=== PATIENT | female | born 1940 | race Two or more races ===

== ENCOUNTER 2017-01-07 16:04 | Outpatient (CLI) | payer OTHER ==
[2017-01-07 16:23] LABS: BASOPHILS % 0.3 (0.0-1.5); EOSINOPHILS % 3.2 % (0.0-6.8); LYMPHOCYTES # 1.9 # k/uL (0.6-4.0); MEAN CORPUSCULAR HEMOGLOBIN 33.4 pg (28.0-34.0); MONOCYTES # 0.3 # k/uL (0.0-0.9); MONOCYTES % 4.4 % (0.0-11.0)
== END 2017-01-07 16:05 ==
LOC: LAB 16:04
PROVIDERS: ATTEND Neurological Surgery
DX: G50.0 Trigeminal neuralgia (principal)
CPT/HCPCS: 36415; 85025; 85651; 86140